=== PATIENT | male | born 1955 | race Caucasian/White ===

== ENCOUNTER 2017-02-04 11:33 | Emergency (ER) | payer OTHER ==
[~2017-02-04] VITALS: Ht 177.8 cm; Wt 81.6 kg
--- NOTE | 2017-02-04 13:12 | ED AMS/SEIZURE/WEAK/DIZZY ---
History of Present Illness General Chief Complaint: Dizziness Stated Complaint: DIZZY/ELAVATED BP SENT BY Carolyn AWAD Source: patient, old records Exam Limitations: no limitations Vital Signs & Intake/Output Vital Signs & Intake/Output Vital Signs Date Time Temp Pulse Resp B/P B/P Pulse O2 O2 Flow FiO2 Mean Ox Delivery Rate 02/04 1342 97.2 61 18 125/73 97 Room Air 02/04 1144 98.3 69 18 145/80 98 Room Air Allergies Coded Allergies: Iodinated Contrast Media - Oral and (Severe, RASH 02/04/17) Reconcile Medications Amlodipine Besylate 10 MG TABLET 1 TAB PO DAILY HEART (Reported) Atorvastatin Calcium 40 MG TABLET 1 TAB PO DAILY CHOLESTEROL (Reported) Lisinopril 5 MG TABLET 1 TAB PO DAILY HEART (Reported) Triage Note: 61 Y/O MALE C/O DIZZINESS, ONSET OVERNIGHT AND CONTINUING INTO TODAY. STATES HE WORKS OVERNIGHT AND BEGAN TO NOTICE IT WHILE WORKING; ATE SOMETHING AND ATTRIBUTED SYMPTOMS TO BEING TIRED AND HUNGRY. STATES HE STILL "FEELS DIZZY". PT SPEAKING CLEARLY WITH NO DISTRESS OR DEFICITS NOTED. DENIES PAIN. Triage Nurses Notes Reviewed? yes Onset: Gradual Duration: day(s): (1), better, resolved prior to arrival Timing: recent history Injury Environment: work Severity: mild, moderate Severity Numbers: 4 No Modifying Factors: none Associated Symptoms: denies HPI: 61-year-old male with history of hypertension and previous CVA presents to ER for evaluation after he developed gradual onset of feeling lightheaded after he came off of work this morning. 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 The patient denies dizziness, sure to triage note and states he felt lightheaded on arrival the patient is without any complaints he went to his primary care physician's office who advised him to come here for blood work. He denies any episodes of chest pain palpitations dizziness shortness of breath abdominal pain nausea vomiting. No recent fall or head trauma no nausea no vomiting. He states that he did eat last night before work. He is unsure and states it may be from a lack of sleep however denies any complaints at this time. pt denies feeling like he was going to pass out. he states when he had his stroke his legs gave out and states this episode does not feel similar (HANINDIRA NARAYANAN) Past History Travel History Traveled to [place] past 21 day No Medical History Any Pertinent Medical History? see below for history Neurological: CVA EENT: NONE Cardiovascular: hypertension, HIGH CHOLESTEROL Respiratory: NONE Gastrointestinal: NONE Hepatic: NONE Renal: NONE Musculoskeletal: NONE Psychiatric: NONE Endocrine: NONE Blood Disorders: NONE Cancer(s): NONE SENIOR QUALITY MANAGER/Reproductive: NONE Surgical History Surgical History: non-contributory Psychosocial History What is your primary language Croatian Tobacco Use: Quit >30 days ago Family History Hx Contributory? No (INDIRA MULLEN) Review of Systems Review of Systems Constitutional: Reports: see HPI. All Other Systems: Reviewed and Negative Comments Review of systems: See HPI, All other systems negative. Constitutional, no chills no fever, no malaise HEENT: No visual changes no sore throat no congestion, Cardiovascular: No chest pain , no palpitation Skin: no rashes, no change in skin Respiratory: No dyspnea no cough no sputum GI: No nausea no vomiting, no diarrhea, : No dysuria No hematuria, Muscle skeletal: No joint pain, no back pain, no neck pain, Neurologic: No numbness no headache Psych: No stress Heme/endocrine: No bruising no bleeding Immunology: No lymphadenopathy (INDIRA MULLEN) Physical Exam Physical Exam General Appearance: well developed/nourished, no apparent distress, alert, awake Comments: Well-developed well-nourished person in no acute distress HEENT: Normal EENT exam; PERRL, EOMI, no nystagmus. HEAD is atraumatic. moist mucous membranes. Neck: Supple, no lymphadenopathy, normal range of motion no bruit Back: Nontender, no CVA tenderness. Full range of motion Cardiovascular: Regular rate and rhythms no murmurs rubs Respiratory: Chest nontender.There were no bony deformities, no asymmetry. No respiratory distress. Patient speaking in full complete sentences. Breath sounds clear to auscultation bilaterally: NO W/R/R Abdomen: Soft, nontender nondistended, no appreciable organomegaly. Normal bowel sounds. No rebound/guarding, Extremity: No edema, full range of motion of extremities Neuro: Alert oriented x3, motor sensory normal, There were no obvious focal neurologic abnormalities. Skin: No appreciable rash on exposed skin, skin is warm and dry. Psych: Mood and affect is normal, memory and judgment is normal. Core Measures ACS in differential dx? Yes CVA/TIA Diagnosis: No Severe Sepsis Present: No Septic Shock Present: No (INDIRA MULLEN) Progress Differential Diagnosis: arrythmia, anemia, benign positional vertigo, CVA/stroke , dehydration, drug intoxication, electrolyte imbalance, GI bleed, hypoglycemia, hypoxia, vertebrobasilar insuff Plan of Care: Orders Procedure Date/time Status Add-on Test (ER Only) 02/04 1337 Active MISTAKE 02/04 131 Active Telemetry/Cloud Solutions Architect 02/04 131 Active TROPONIN LEVEL 02/04 1319 Complete LYME TITRE 02/04 131 Active COMPREHENSIVE METABOLIC PANEL 02/04 131 Complete CBC WITHOUT DIFFERENTIAL 02/04 1319 Complete EKG 02/04 1136 Active Laboratory Tests 02/04/17 1320: Anion Gap 11, Estimated GFR > 60, BUN/Creatinine Ratio 21.3, Glucose 89, Calcium 10.5 H, Total Bilirubin 1.3, AST 19, ALT 29, Alkaline Phosphatase 68, Troponin I < 0.01, Total Protein 7.1, Albumin 4.3, Globulin 2.8, Albumin/Globulin Ratio 1.5, CBC w Diff NO MAN DIFF REQ, RBC 4.88, MCV 88.9, MCH 30.1, RDW 13.6, MPV 8.8 , Gran % 78.1 H, Lymphocytes % 12.6 L, Monocytes % 8.6, Eosinophils % 0.4, Basophils % 0.3, Absolute Granulocytes 7.4 H, Absolute Lymphocytes 1.2, Absolute Monocytes 0.8 H, Absolute Eosinophils 0, Absolute Basophils 0, PUBS MCHC 33.9 02/04/17 1319: Lyme Disease Antibody Pending Labs ordered old records reviewed case discussed with Dr. mcadams who agrees with plan I discussed with the patient at length all of their results. I had an extensive conversation regarding need for close follow up with their primary care physician this week as well as return precautions. I answered all of their questions, they feel comfortable with the plan and follow-up care. I discussed the medications that they will receive with the patient. I gave them signs and symptoms that could indicate an adverse reaction. I have advised them to limit their activities until they can see how they respond to the medication. (INDIRA MULLEN) Initial ED EKG: NSR AT 60, NO ACUTE ST SEG CHANGES, PVC, NORMAL AXIS (INDIRA MULLEN) Departure Departure Time of Disposition: 1446 Disposition: HOME OR SELF CARE Condition: Stable Clinical Impression Primary Impression: Lightheadedness Referrals: RITESH YADAV,VANE [place] (PCP/Family) Additional Instructions: follow up with your pmd dr awad. return to the ER if you symptoms recur or you have any other concerns Departure Forms: Customer Survey General Discharge Information (INDIRA MULLEN) PA/MAINTENANCE DEPARTMENT MANAGER Co-Sign Statement Statement: ED Attending supervision documentation- [x] I saw and evaluated the patient. I have also reviewed all the pertinent lab results and diagnostic results. I agree with the findings and the plan of care as documented in the PA's/MAINTENANCE DEPARTMENT MANAGER's documentation. [] I have reviewed the ED Record and agree with the PA's/MAINTENANCE DEPARTMENT MANAGER's documentation. [] Additions or exceptions (if any) to the PAs/MAINTENANCE DEPARTMENT MANAGER's note and plan are summarized below: [] (EREN MCADAMS DO
[2017-02-04 13:33] LABS: ABSOLUTE BASOPHIL COUNT 0 /CUMM (0.0-0.2); ABSOLUTE EOSINOPHIL COUNT 0 /CUMM (0.0-0.7); ABSOLUTE GRANULOCYTE CT 7.4 /CUMM (1.4-6.5); ABSOLUTE LYMPH COUNT 1.2 /CUMM (1.2-3.4); ABSOLUTE MONOCYTE COUNT 0.8 /CUMM (0.10-0.60); BASOPHIL % 0.3 % (0.0-2.0); EOSINOPHIL % 0.4 % (0-5); GRANULOCYTE % 78.1 % (42.2-75.2); HEMATOCRIT 43.4 % (42-52); MEAN CORPUSCULAR HGB 30.1 PG (27.0-31.0); MEAN CORPUSCULAR HGB CONC 33.9 G/DL (33.0-37.0); MEAN CORPUSCULAR VOLUME 88.9 FL (80.0-94.0); MEAN PLATELET VOLUME 8.8 FL (7.4-10.4); PLATELET COUNT 283 /CUMM (130-400); RBC DISTRIBUTION WIDTH 13.6 % (11.5-14.5); RED BLOOD CELL CT 4.88 /CUMM (4.70-6.10); WHITE BLOOD CELL COUNT 9.5 /CUMM (4.8-10.8)
[2017-02-04 13:42] VITALS: BP 125/73
[2017-02-04] MEDS ORDERED: LISINOPRIL5 M1 PO (14:03)
[2017-02-04] MEDS ORDERED: ATORVASTATIN CA40 M1 PO (14:03)
[2017-02-04] MEDS ORDERED: AMLODIPINE BESY10 M1 PO (14:03)
== END 2017-02-04 15:00 ==
LOC: ERH 11:33
PROVIDERS: Physician Assistant Medical
DX: R42 Dizziness and giddiness (principal)
CPT/HCPCS: 86618; 93005; 93010